=== PATIENT | female | born 1955 | race Caucasian/White ===

== ENCOUNTER 2023-03-19 19:04 | Emergency (ER) | payer MEDICARE ==
[~2023-03-19] VITALS: Ht 165.1 cm; Wt 72.0 kg
[2023-03-19] MEDS ORDERED: HYDROcodone-ACET 10/325MG TAB PO ONE (19:45)
[2023-03-19] MEDS ORDERED: IBUP-1454 PO (20:37)
[2023-03-19] MEDS ORDERED: HYDR-4902 PO (20:37)
[2023-03-19 21:15] VITALS: PULSE 65; RESP 12; O2SAT 99
[2023-03-19] MEDS ORDERED: cloNIDine HCL 0.1 MG TAB PO ONE (22:15)
[2023-03-19] MEDS ORDERED: CLON0.2T PO (23:27)
[2023-03-19] MEDS ORDERED: LISI10TA34 PO (23:27)
[2023-03-19 23:46] VITALS: TEMP 98.6
[2023-03-20] VITALS: BP 135/62; PULSE 74; RESP 19; O2SAT 97
== END 2023-03-20 00:14 | disposition home or self-care (01) ==
LOC: ER 19:04
DX: S82.831A Other fracture of upper and lower end of right fibula, initial encounter for closed fracture (principal); S82.301A Unspecified fracture of lower end of right tibia, initial encounter for closed fracture; W11.XXXA Fall on and from ladder, initial encounter; Y93.89 Activity, other specified; Y92.89 Other specified places as the place of occurrence of the external cause; Y99.8 Other external cause status
CPT/HCPCS: 29515; 73590; 73610; 93005

== ENCOUNTER → 2023-10-04 | Outpatient (CLI) | payer OTHER ==
[~2023-10-04] MED LIST: CLON0.2T PO; HYDR-4902 PO; IBUP-1454 PO; LISI10TA34 PO
[2023-10-04 08:46] LABS: Urine Bacteria None Seen /hpf (None Seen)
[2023-10-04 08:54] LABS: Basophils # (auto) 0 10 ^3/uL (0-0.2); Basophils % (auto) 0.4 % (0.0-2.0); Eosinophils # (auto) 0.1 10 ^3/uL (0-0.8); Eosinophils % (auto) 2.3 % (0.0-7.0); Hematocrit 36.1 % (36.0-46.0); Hemoglobin 11.7 g/dL (12.2-16.2); Lymphocytes # (auto) 1.2 10 ^3/uL (0.4-5.4); Mean Corpuscular Hgb Conc. 32.5 g/dL (32.0-36.0); Monocytes # (auto) 0.4 10 ^3/uL (0-1.3); Neutrophils % (auto) 63.3 % (37.0-80.0); Red Blood Cells 4.51 10^6/uL (4.0-5.20); Red Cell Distribution Width 15.5 % (11.8-14.3); White Blood Cell 4.8 10^3/uL (4.4-10.8)
[2023-10-04 09:12] LABS: Urine Blood Negative /uL (Negative); Urine Clarity Clear (Clear); Urine Color Light-Yellow (Yellow); Urine Protein, UAD Negative (Negative); Urine Specific Gravity 1.017 (1.001-1.035); Urine Urobilinogen Normal (Negative); Urine WBC <1 /hpf (0 - 5); Urine pH 5.5 (5.0-9.0)
[2023-10-04 09:28] LABS: Alanine Aminotransferase 26 U/L (7-40); Alkaline Phosphatase 116 U/L (46-116); Anion Gap 4 (5-15); BUN/Creatinine Ratio 14.5 (10.0-20.0); Blood Urea Nitrogen 8 mg/dL (9-23); Calcium 9.2 mg/dL (8.7-10.4); Carbon Dioxide 29 mmol/L (20-30); Chloride 108 mmol/L (98-107); Glucose 98 mg/dL (74-106); LDL Cholesterol 136 mg/dL (< 100); Potassium 4.2 mmol/L (3.5-5.1); Sodium 141 mmol/L (136-145); Triglycerides 172 mg/dL (< 150)
[2023-10-04 09:29] LABS: Albumin 4.2 g/dL (3.2-4.8); Aspartate Aminotransferase 19 U/L (13-40); Bilirubin, Total 0.5 mg/dL (0.2-1.0); Cholesterol 201 mg/dL (< 200); HDL Cholesterol 40 mg/dL (40-59); Total Protein 6.8 g/dL (5.7-8.2)
[2023-10-04 10:22] LABS: Uric Acid 4.1 mg/dL (3.1-7.8)
[2023-10-04 10:27] LABS: Folate (Folic Acid) 17.05 ng/mL (>5.38)
== END | disposition home or self-care (01) ==
LOC: LAB 08:31
PROVIDERS: ATTEND Internal Medicine
DX: I10 Essential (primary) hypertension (principal); Z00.00 Encounter for general adult medical examination without abnormal findings; Z68.31 Body mass index [BMI] 31.0-31.9, adult
CPT/HCPCS: 36415; 80053; 80061; 81001; 82306; 82607; 82746; 83036; 84443; 84550; 85025; 87086

== ENCOUNTER 2024-12-26 07:35 | Outpatient (CLI) | payer OTHER ==
[2024-12-26 08:13] LABS: Hematocrit 30.9 % (36.0-46.0); Hemoglobin 10.1 g/dL (12.2-16.2); Mean Corpuscular Hemoglobin 23.0 pg (28.0-32.0); Mean Corpuscular Volume 70.6 fL (80.0-100.0); Nucleated Red Blood Cells % 0.0 %
[2024-12-26 08:21] LABS: Alanine Aminotransferase 38 U/L (7-40); Albumin 4.0 g/dL (3.2-4.8); Alkaline Phosphatase 112 U/L (46-116); Anion Gap 11 (5-15); BUN/Creatinine Ratio 28.8 (10.0-20.0); Blood Urea Nitrogen 17 mg/dL (9-23); Carbon Dioxide 25 mmol/L (20-31); Chloride 106 mmol/L (98-107); Glucose 94 mg/dL (74-106); Potassium 3.8 mmol/L (3.5-5.1); Sodium 142 mmol/L (136-145); Total Protein 6.9 g/dL (5.7-8.2)
[2024-12-26 08:22] LABS: Bilirubin, Total 0.4 mg/dL (0.2-1.0); Calcium 8.7 mg/dL (8.7-10.4); Cholesterol 151 mg/dL (< 200); HDL Cholesterol 51 mg/dL (40-59); Triglycerides 195 mg/dL (< 150)
[2024-12-26 08:41] LABS: Uric Acid 2.9 mg/dL (3.1-7.8)
[2024-12-26 08:52] LABS: Urine Protein, UAD Negative (Negative)
== END 2024-12-26 17:00 | disposition home or self-care (01) ==
LOC: LAB 07:35
PROVIDERS: ATTEND Internal Medicine
DX: E78.49 Other hyperlipidemia (principal); E61.2 Magnesium deficiency; E79.0 Hyperuricemia without signs of inflammatory arthritis and tophaceous disease; E55.9 Vitamin D deficiency, unspecified; D51.9 Vitamin B12 deficiency anemia, unspecified; R82.79 Other abnormal findings on microbiological examination of urine; R82.90 Unspecified abnormal findings in urine; R82.998 Other abnormal findings in urine; R94.6 Abnormal results of thyroid function studies; R68.89 Other general symptoms and signs; R73.09 Other abnormal glucose
CPT/HCPCS: 36415; 80053; 80061; 81001; 82306; 82607; 82746; 83036; 84443; 84550; 85025; 86695; 86696; 87086